=== PATIENT | female | born 1970 | race Caucasian/White ===

== ENCOUNTER 2016-12-19 12:54 | Emergency (ER) | payer MEDICAID ==
[~2016-12-19] VITALS: Ht 152.4 cm; Wt 54.0 kg
[2016-12-19 15:07] VITALS: BP 124/80
== END 2016-12-19 15:07 | disposition home or self-care (01) ==
LOC: ED 12:54
DX: I10 Essential (primary) hypertension (principal); R51 Headache

== ENCOUNTER 2017-03-05 20:39 | Inpatient (IN) | payer MEDICAID ==
[~2017-03-05] VITALS: Ht 162.6 cm; Wt 55.3 kg
[2017-03-05 21:47] LABS: CALCIUM 9.1 mg/dL (8.5-10.1); CARBON DIOXIDE 21.8 mmol/L (21-32); CREATININE SERUM 2.7 mg/dL (0.6-1.0); POTASSIUM SERUM 3.2 mmol/L (3.5-5.1)
[2017-03-05 21:52] LABS: ALBUMIN 3.3 g/dL (3.4-5.0); BILIRUBIN TOTAL 0.28 mg/dL (0.20-1.00); TOTAL PROTEIN, SERUM 7.3 g/dL (6.4-8.2)
[2017-03-05 21:52] LABS: microscopic required? YES; urine erythrocyte 1+ (NEGATIVE)
[2017-03-05 22:14] LABS: BASOPHIL % 0.6 % (0-2); PLATELET COUNT 235 x10^3mcL (130-400)
[2017-03-06] VITALS (7 sets, daily range): BP systolic 119–165; BP diastolic 78–108; Ht 162.6 cm; Wt 55.3 kg
[2017-03-06 02:35] LABS: FREE T4 1.02 ng/dL (0.76-1.46); FREE THYROXINE INDEX 2.6 ug/dL (1.4-4.5); T4(THYROXINE) 7.1 ug/dL (4.7-13.3)
[2017-03-06 02:36] LABS: MAGNESIUM 2.4 mg/dL (1.8-2.4); PHOSPHOROUS 4.1 mg/dL (2.5-4.9)
[2017-03-06 02:56] LABS: T3 TOTAL 0.91 ng/mL
[2017-03-06 06:48] LABS: BASOPHIL % 0.6 % (0-2); PLATELET COUNT 226 x10^3mcL (130-400); RED CELL DISTRIBUTION WIDTH 13.3 % (11.5-14.5)
[2017-03-06 06:57] LABS: CALCIUM 8.9 mg/dL (8.5-10.1); CARBON DIOXIDE 18.2 mmol/L (21-32); CREATININE SERUM 2.7 mg/dL (0.6-1.0); POTASSIUM SERUM 3.3 mmol/L (3.5-5.1)
[2017-03-06 15:50] LABS: IRON 48 ug/dL (50-170); TOTAL IRON BINDING CAPACITY 322 ug/dL (250-450)
[2017-03-06 16:01] LABS: RED BLOOD CELLS 3.78 M/mm3 (4.10-5.10)
[2017-03-06 17:52] LABS: AMPHETAMINE QUAL UR NONE DETECTED (NEG <=1000)
[2017-03-07 06:01] VITALS: BP 125/88
[2017-03-07 06:29] LABS: CALCIUM 8.9 mg/dL (8.5-10.1); CARBON DIOXIDE 19.2 mmol/L (21-32); CREATININE SERUM 2.6 mg/dL (0.6-1.0); MAGNESIUM 2.5 mg/dL (1.8-2.4); PHOSPHOROUS 4.8 mg/dL (2.5-4.9)
[2017-03-07 06:37] LABS: BASOPHIL % 0.5 % (0-2); PLATELET COUNT 213 x10^3mcL (130-400); RED CELL DISTRIBUTION WIDTH 13.6 % (11.5-14.5)
[2017-03-07 08:55] VITALS: BP 128/88
[2017-03-07 13:20] VITALS: BP 124/79
[2017-03-07 17:20] VITALS: BP 116/79
[2017-03-07 21:35] VITALS: BP 125/86
[2017-03-08 05:59] VITALS: BP 132/89
[2017-03-08 07:03] LABS: BASOPHIL % 0.4 % (0-2); PLATELET COUNT 192 x10^3mcL (130-400); RED CELL DISTRIBUTION WIDTH 13.4 % (11.5-14.5)
[2017-03-08 07:10] LABS: CALCIUM 8.7 mg/dL (8.5-10.1); CREATININE SERUM 2.4 mg/dL (0.6-1.0); MAGNESIUM 2.3 mg/dL (1.8-2.4); PHOSPHOROUS 4.7 mg/dL (2.5-4.9)
[2017-03-08 09:44] VITALS: BP 122/83
[2017-03-08] MEDS ORDERED: NOR10 PO (11:24)
[2017-03-08] MEDS ORDERED: ZES10 PO (11:25)
[2017-03-08 12:38] VITALS: BP 122/83
[2017-03-10 11:46] LABS: COMPLEMENT C3 112 mg/dL (82-167); COMPLEMENT C4 31 mg/dL (14-44)
== END 2017-03-08 13:48 | disposition home or self-care (01) | DRG 199 ==
LOC: ED 20:39 → DU 03-06 00:39 → MU 03-07 11:00
PROVIDERS: Emergency Medicine; Family Medicine; Family Medicine Sports Medicine; Internal Medicine; ADMIT Family Medicine
DX: I16.0 Hypertensive urgency (principal); N17.0 Acute kidney failure with tubular necrosis; I42.9 Cardiomyopathy, unspecified; I08.2 Rheumatic disorders of both aortic and tricuspid valves; E83.41 Hypermagnesemia; N39.0 Urinary tract infection, site not specified; I12.9 Hypertensive chronic kidney disease with stage 1 through stage 4 chronic kidney disease, or unspecified chronic kidney disease; N18.9 Chronic kidney disease, unspecified; D64.9 Anemia, unspecified; Z91.14 Patient's other noncompliance with medication regimen; Z68.21 Body mass index [BMI] 21.0-21.9, adult
CPT/HCPCS: 84439; J0360; J0696; J2060; J7030; Q0092

== ENCOUNTER 2017-10-20 17:40 | Emergency (ER) | payer MEDICAID ==
[~2017-10-20] VITALS: Ht 157.5 cm; Wt 56.2 kg
[~2017-10-20 17:40] MED LIST: NOR10 PO; ZES10 PO
[2017-10-20 17:47] VITALS: Ht 157.5 cm; Wt 56.2 kg
[2017-10-20 20:13] VITALS: BP 128/84
== END 2017-10-20 20:13 | disposition home or self-care (01) ==
LOC: ED 17:40
DX: R05 Cough (principal); I10 Essential (primary) hypertension; D64.9 Anemia, unspecified

== ENCOUNTER 2018-04-07 18:08 | Emergency (ER) | payer MEDICAID ==
[~2018-04-07] VITALS: Ht 152.4 cm; Wt 54.5 kg
[2018-04-07 19:05] LABS: BASOPHIL % 0.5 % (0-2); PLATELET COUNT 218 x10^3mcL (130-400); RED CELL DISTRIBUTION WIDTH 13.1 % (11.5-14.5)
[2018-04-07 19:23] LABS: CARBON DIOXIDE 22.4 mmol/L (21-32); CREATININE SERUM 3.1 mg/dL (0.6-1.0); POTASSIUM SERUM 4.8 mmol/L (3.5-5.1)
[2018-04-07 19:24] LABS: BILIRUBIN TOTAL 0.1 mg/dL (0.20-1.00); TOTAL PROTEIN, SERUM 7.1 g/dL (6.4-8.2)
[2018-04-07 19:25] LABS: ALBUMIN 3.2 g/dL (3.4-5.0)
[2018-04-07 20:21] VITALS: BP 131/73
== END 2018-04-07 20:21 | disposition home or self-care (01) ==
LOC: ED 18:08
PROVIDERS: Emergency Medicine
DX: R51 Headache (principal); R11.2 Nausea with vomiting, unspecified
CPT/HCPCS: 36415; Q0162

== ENCOUNTER 2018-04-19 21:19 | Emergency (ER) | payer MEDICAID ==
[2018-04-19 22:29] LABS: microscopic required? YES; urine erythrocyte 2+ (NEGATIVE)
[2018-04-19 22:40] VITALS: BP 128/85
== END 2018-04-19 22:40 | disposition home or self-care (01) ==
LOC: ED 21:19
PROVIDERS: Emergency Medicine
DX: N39.0 Urinary tract infection, site not specified (principal); R51 Headache; I10 Essential (primary) hypertension; Z86.2 Personal history of diseases of the blood and blood-forming organs and certain disorders involving the immune mechanism
CPT/HCPCS: J1200; J1885; J2765; J7030

== ENCOUNTER 2018-04-21 00:29 | Inpatient (IN) | payer MEDICAID ==
[~2018-04-21] VITALS: Ht 154.9 cm; Wt 59.0 kg
[2018-04-21] VITALS (7 sets, daily range): BP systolic 84–123; BP diastolic 46–79; Ht 154.9 cm; Wt 59.0 kg
[2018-04-21 02:02] LABS: BASOPHIL % 0.1 % (0-2); PLATELET COUNT 141 x10^3mcL (130-400); RED CELL DISTRIBUTION WIDTH 12.7 % (11.5-14.5)
[2018-04-21 02:19] LABS: CALCIUM 8.4 mg/dL (8.5-10.1); CARBON DIOXIDE 17.1 mmol/L (21-32); POTASSIUM SERUM 4.1 mmol/L (3.5-5.1)
[2018-04-21 02:32] LABS: BILIRUBIN TOTAL 0.42 mg/dL (0.20-1.00); TOTAL PROTEIN, SERUM 6.4 g/dL (6.4-8.2)
[2018-04-21 02:37] LABS: ALBUMIN 2.6 g/dL (3.4-5.0)
[2018-04-21 02:38] LABS: CREATININE SERUM 4.7 mg/dL (0.6-1.0)
[2018-04-21 03:09] LABS: microscopic required? YES; urine erythrocyte 2+ (NEGATIVE)
[2018-04-21 05:09] LABS: CHOLESTEROL/HDL RATIO 5.2; MAGNESIUM 1.9 mg/dL (1.8-2.4); PHOSPHOROUS 2.5 mg/dL (2.5-4.9)
[2018-04-21 09:27] LABS: IRON 17 ug/dL (50-170); TOTAL IRON BINDING CAPACITY 225 ug/dL (250-450)
[2018-04-22 05:45] VITALS: BP 115/71
[2018-04-22 06:36] LABS: BASOPHIL % 0.3 % (0-2); PLATELET COUNT 176 x10^3mcL (130-400); RED CELL DISTRIBUTION WIDTH 13.7 % (11.5-14.5)
[2018-04-22 07:07] LABS: CALCIUM 8.5 mg/dL (8.5-10.1); CARBON DIOXIDE 16.3 mmol/L (21-32); CREATININE SERUM 3.8 mg/dL (0.6-1.0); MAGNESIUM 2.1 mg/dL (1.8-2.4); POTASSIUM SERUM 5.4 mmol/L (3.5-5.1)
[2018-04-22 08:23] VITALS: BP 134/89
[2018-04-22 11:19] LABS: BILIRUBIN DIRECT 0.11 mg/dL (0.0-0.2); BILIRUBIN TOTAL 0.16 mg/dL (0.20-1.00)
[2018-04-22 11:31] LABS: ALBUMIN 2.1 g/dL (3.4-5.0); TOTAL PROTEIN, SERUM 5.7 g/dL (6.4-8.2)
[2018-04-22 12:46] VITALS: BP 108/75
[2018-04-22 17:15] VITALS: BP 126/85
[2018-04-22 20:49] VITALS: BP 129/86
[2018-04-23 05:43] VITALS: BP 143/91
[2018-04-23 07:02] LABS: BASOPHIL % 0.5 % (0-2); PLATELET COUNT 187 x10^3mcL (130-400); RED CELL DISTRIBUTION WIDTH 13.8 % (11.5-14.5)
[2018-04-23 07:05] LABS: CALCIUM 8.3 mg/dL (8.5-10.1); CARBON DIOXIDE 17.1 mmol/L (21-32); CREATININE SERUM 3.5 mg/dL (0.6-1.0); MAGNESIUM 1.9 mg/dL (1.8-2.4); PHOSPHOROUS 3.8 mg/dL (2.5-4.9); POTASSIUM SERUM 4.5 mmol/L (3.5-5.1)
[2018-04-23 08:18] VITALS: BP 158/82
[2018-04-23 08:50] LABS: BILIRUBIN DIRECT 0.07 mg/dL (0.0-0.2); BILIRUBIN TOTAL 0.13 mg/dL (0.20-1.00)
[2018-04-23 08:52] LABS: ALBUMIN 2.1 g/dL (3.4-5.0); TOTAL PROTEIN, SERUM 5.5 g/dL (6.4-8.2)
[2018-04-23 12:59] VITALS: BP 153/88
[2018-04-23 15:29] VITALS: BP 153/88
[2018-04-23 17:12] VITALS: BP 167/93
[2018-04-23 20:38] VITALS: BP 152/69
[2018-04-24 05:36] VITALS: BP 146/92
[2018-04-24 06:11] LABS: BASOPHIL % 0.5 % (0-2); PLATELET COUNT 201 x10^3mcL (130-400); RED CELL DISTRIBUTION WIDTH 13.1 % (11.5-14.5)
[2018-04-24 07:04] LABS: BILIRUBIN DIRECT 0.07 mg/dL (0.0-0.2); BILIRUBIN TOTAL 0.15 mg/dL (0.20-1.00); CALCIUM 8.5 mg/dL (8.5-10.1); CREATININE SERUM 3.1 mg/dL (0.6-1.0); MAGNESIUM 1.8 mg/dL (1.8-2.4); PHOSPHOROUS 3.9 mg/dL (2.5-4.9); POTASSIUM SERUM 4.4 mmol/L (3.5-5.1)
[2018-04-24 07:05] LABS: ALBUMIN 2.1 g/dL (3.4-5.0); TOTAL PROTEIN, SERUM 5.6 g/dL (6.4-8.2)
[2018-04-24 08:26] VITALS: BP 157/90
[2018-04-24 09:52] VITALS: BP 138/85
[2018-04-24] MEDS ORDERED: BACTRIM1 TAB PO (12:04)
[2018-04-24] MEDS ORDERED: ACYCLOVIR400 MG PO (12:06)
[2018-04-24] MEDS ORDERED: BD LACTINEX1.4 MG PO (12:06)
== END 2018-04-24 14:09 | disposition home or self-care (01) | DRG 463 ==
LOC: ED 00:29 → DU 03:06
PROVIDERS: Emergency Medicine; General Practice; Internal Medicine
DX: N39.0 Urinary tract infection, site not specified (principal); N17.0 Acute kidney failure with tubular necrosis; E43 Unspecified severe protein-calorie malnutrition; B00.1 Herpesviral vesicular dermatitis; I10 Essential (primary) hypertension; E83.51 Hypocalcemia; E87.5 Hyperkalemia; R74.0 Nonspecific elevation of levels of transaminase and lactic acid dehydrogenase [LDH]; D50.9 Iron deficiency anemia, unspecified; B96.20 Unspecified Escherichia coli [E. coli] as the cause of diseases classified elsewhere; Z68.23 Body mass index [BMI] 23.0-23.9, adult
CPT/HCPCS: J0696; J2270; J2405; J2916; J7030; Q0092

== ENCOUNTER 2019-06-18 17:00 | Emergency (ER) | payer MEDICAID ==
[~2019-06-18] VITALS: Ht 152.4 cm; Wt 50.8 kg
[~2019-06-18 17:00] MED LIST changes: +ACYCLOVIR400 MG PO; +BACTRIM1 TAB PO; +BD LACTINEX1.4 MG PO
[2019-06-18 17:09] VITALS: Ht 152.4 cm; Wt 50.8 kg
[2019-06-18 17:39] VITALS: BP 143/78
== END 2019-06-18 17:39 | disposition home or self-care (01) ==
LOC: ED 17:00
DX: L03.012 Cellulitis of left finger (principal); I10 Essential (primary) hypertension

== ENCOUNTER 2019-09-23 22:01 | Inpatient (IN) | payer MEDICAID ==
[~2019-09-23] VITALS: Ht 152.4 cm; Wt 53.5 kg
[2019-09-23 22:08] VITALS: Ht 152.4 cm; Wt 53.5 kg
[2019-09-23 23:17] LABS: BASOPHIL % 0.7 % (0-2); PLATELET COUNT 156 x10^3mcL (130-400); RED CELL DISTRIBUTION WIDTH 13.1 % (11.5-14.5)
[2019-09-23 23:56] LABS: CALCIUM 8.1 mg/dL (8.5-10.1); CARBON DIOXIDE 22.3 mmol/L (21-32); POTASSIUM SERUM 5.5 mmol/L (3.5-5.1)
[2019-09-23 23:58] LABS: CREATININE SERUM 6.5 mg/dL (0.6-1.0)
[2019-09-24 03:36] LABS: UA SPECIFIC GRAVITY 1.015 (1.005-1.035); microscopic required? YES; urine erythrocyte TRACE (NEGATIVE)
[2019-09-24 03:50] LABS: AMPHETAMINE QUAL UR NONE DETECTED (See below)
[2019-09-24 04:52] LABS: BASOPHIL % 0.3 % (0-2); PLATELET COUNT 143 x10^3mcL (130-400)
[2019-09-24 05:13] LABS: CALCIUM 7.9 mg/dL (8.5-10.1); CARBON DIOXIDE 18.3 mmol/L (21-32); MAGNESIUM 2.4 mg/dL (1.8-2.4); PHOSPHOROUS 5.7 mg/dL (2.5-4.9)
[2019-09-24 05:15] VITALS: BP 135/88
[2019-09-24 05:17] LABS: POTASSIUM SERUM 6.5 mmol/L (3.5-5.1)
[2019-09-24 08:41] VITALS: BP 139/86
[2019-09-24 12:24] VITALS: BP 148/89
[2019-09-24 16:24] VITALS: BP 143/75
[2019-09-24 16:36] LABS: CALCIUM 8.6 mg/dL (8.5-10.1); CARBON DIOXIDE 20.2 mmol/L (21-32)
[2019-09-24 16:55] LABS: POTASSIUM SERUM 6.1 mmol/L (3.5-5.1)
[2019-09-24 19:18] VITALS: BP 141/84
[2019-09-25 04:36] VITALS: BP 142/84
[2019-09-25 07:26] LABS: IRON 36 ug/dL (50-170)
[2019-09-25 07:31] LABS: BASOPHIL % 0.3 % (0-2); PLATELET COUNT 136 x10^3mcL (130-400); RED CELL DISTRIBUTION WIDTH 13.2 % (11.5-14.5)
[2019-09-25 07:32] LABS: CARBON DIOXIDE 19.4 mmol/L (21-32); MAGNESIUM 2.3 mg/dL (1.8-2.4); PHOSPHOROUS 6.4 mg/dL (2.5-4.9); POTASSIUM SERUM 5.3 mmol/L (3.5-5.1)
[2019-09-25 07:33] LABS: CREATININE SERUM 6.2 mg/dL (0.6-1.0)
[2019-09-25 07:34] LABS: TOTAL IRON BINDING CAPACITY 233 ug/dL (250-450)
[2019-09-25 07:54] VITALS: BP 148/78
[2019-09-25 11:40] VITALS: BP 156/88
[2019-09-25 16:51] VITALS: BP 148/79
[2019-09-25 19:39] VITALS: BP 139/80
[2019-09-26 05:45] VITALS: BP 144/86
[2019-09-26 06:11] LABS: BASOPHIL % 0.4 % (0-2); RED CELL DISTRIBUTION WIDTH 12.9 % (11.5-14.5)
[2019-09-26 06:12] LABS: PLATELET COUNT 129 x10^3mcL (130-400)
[2019-09-26 06:24] LABS: CALCIUM 8.5 mg/dL (8.5-10.1); MAGNESIUM 1.8 mg/dL (1.8-2.4); PHOSPHOROUS 5.4 mg/dL (2.5-4.9); POTASSIUM SERUM 3.7 mmol/L (3.5-5.1)
[2019-09-26 06:25] LABS: CREATININE SERUM 4.2 mg/dL (0.6-1.0)
[2019-09-26 07:49] VITALS: BP 142/86
[2019-09-26 12:37] VITALS: BP 116/83
[2019-09-26 16:28] VITALS: BP 119/73
[2019-09-26 20:30] VITALS: BP 127/77
[2019-09-27 05:31] VITALS: BP 139/78
[2019-09-27 06:33] LABS: BASOPHIL % 0.4 % (0-2); PLATELET COUNT 136 x10^3mcL (130-400); RED CELL DISTRIBUTION WIDTH 12.8 % (11.5-14.5)
[2019-09-27 06:47] LABS: CARBON DIOXIDE 29.5 mmol/L (21-32); MAGNESIUM 1.7 mg/dL (1.8-2.4); PHOSPHOROUS 5.4 mg/dL (2.5-4.9); POTASSIUM SERUM 3.6 mmol/L (3.5-5.1)
[2019-09-27 07:06] LABS: CREATININE SERUM 4.6 mg/dL (0.6-1.0)
[2019-09-27 07:52] VITALS: BP 130/87
[2019-09-27 11:51] VITALS: BP 149/93
[2019-09-27 16:33] VITALS: BP 148/97
[2019-09-27 21:35] VITALS: BP 130/91
[2019-09-28] VITALS (7 sets, daily range): BP systolic 135–155; BP diastolic 84–96
[2019-09-28 06:49] LABS: BASOPHIL % 0.4 % (0-2); RED CELL DISTRIBUTION WIDTH 12.8 % (11.5-14.5)
[2019-09-28 07:07] LABS: PLATELET COUNT 121 x10^3mcL (130-400)
[2019-09-28 07:10] LABS: CARBON DIOXIDE 24.4 mmol/L (21-32); POTASSIUM SERUM 3.7 mmol/L (3.5-5.1)
[2019-09-28 07:15] LABS: CREATININE SERUM 5.8 mg/dL (0.6-1.0)
[2019-09-28] MEDS ORDERED: NOR5 PO (17:19)
[2019-09-28] MEDS ORDERED: SUMATRIPTAN SUC50 M1 PO (17:20)
== END 2019-09-28 20:41 | disposition home or self-care (01) | DRG 469 ==
LOC: ED 22:01 → DU 09-24 03:58 → MU 09-28 17:15
PROVIDERS: Emergency Medicine; Internal Medicine; ADMIT Family Medicine
PROC: 0JH63XZ Insertion of Tunneled Vascular Access Device into Chest Subcutaneous Tissue and Fascia, Percutaneous Approach (ICD-10-PCS; principal; 2019-09-24)
PROC: 02H633Z Insertion of Infusion Device into Right Atrium, Percutaneous Approach (ICD-10-PCS; 2019-09-24)
PROC: B5181ZA Fluoroscopy of Superior Vena Cava using Low Osmolar Contrast, Guidance (ICD-10-PCS; 2019-09-24)
PROC: 5A1D70Z Performance of Urinary Filtration, Intermittent, Less than 6 Hours Per Day (ICD-10-PCS; 2019-09-25)
PROC: 5A1D70Z Performance of Urinary Filtration, Intermittent, Less than 6 Hours Per Day (ICD-10-PCS; 2019-09-26)
PROC: 5A1D70Z Performance of Urinary Filtration, Intermittent, Less than 6 Hours Per Day (ICD-10-PCS; 2019-09-28)
DX: N17.9 Acute kidney failure, unspecified (principal); E87.5 Hyperkalemia; I12.0 Hypertensive chronic kidney disease with stage 5 chronic kidney disease or end stage renal disease; G43.909 Migraine, unspecified, not intractable, without status migrainosus; N18.6 End stage renal disease; E86.0 Dehydration; N39.0 Urinary tract infection, site not specified; G44.209 Tension-type headache, unspecified, not intractable; Z79.899 Other long term (current) drug therapy; Z79.4 Long term (current) use of insulin
CPT/HCPCS: 82962; 83880; 86480; G0378; J0690; J0696; J1642; J1644; J2001; J2060; J2250; J2270; J2405; J2916; J3010; J3490; J7030; J7060; P9016; Q0092; U0003-CS

== ENCOUNTER 2019-10-18 07:17 | Emergency (ER) | payer MEDICAID ==
[~2019-10-18] VITALS: Ht 152.4 cm; Wt 52.2 kg
[~2019-10-18 07:17] MED LIST changes: +NOR5 PO; +SUMATRIPTAN SUC50 M1 PO
[2019-10-18 07:32] VITALS: Ht 152.4 cm; Wt 52.2 kg
[2019-10-18 09:05] LABS: BASOPHIL % 0.7 % (0-2); PLATELET COUNT 224 x10^3mcL (130-400); RED CELL DISTRIBUTION WIDTH 14.6 % (11.5-14.5)
[2019-10-18 09:14] LABS: BILIRUBIN TOTAL 0.3 mg/dL (0.20-1.00); CALCIUM 8.6 mg/dL (8.5-10.1); CARBON DIOXIDE 20.1 mmol/L (21-32); TOTAL PROTEIN, SERUM 6.7 g/dL (6.4-8.2)
[2019-10-18 09:19] LABS: ALBUMIN 3.3 g/dL (3.4-5.0); CREATININE SERUM 6.9 mg/dL (0.6-1.0); POTASSIUM SERUM 5.6 mmol/L (3.5-5.1)
[2019-10-18 10:25] VITALS: BP 1158/97
== END 2019-10-18 10:25 | disposition home or self-care (01) ==
LOC: ED 07:17
PROVIDERS: Student in an Organized Health Care Education/Training Program
DX: R07.89 Other chest pain (principal); S11.91XD Laceration without foreign body of unspecified part of neck, subsequent encounter; E87.5 Hyperkalemia; I12.0 Hypertensive chronic kidney disease with stage 5 chronic kidney disease or end stage renal disease; N18.6 End stage renal disease; Z99.2 Dependence on renal dialysis; X58.XXXD Exposure to other specified factors, subsequent encounter; Z86.2 Personal history of diseases of the blood and blood-forming organs and certain disorders involving the immune mechanism
CPT/HCPCS: 36415; Q0092

== ENCOUNTER 2020-02-03 19:42 | Emergency (ER) | payer MEDICAID, SELFPAY ==
[~2020-02-03] VITALS: Ht 152.4 cm; Wt 50.8 kg
[2020-02-03 19:47] VITALS: BP 157/85; Ht 152.4 cm; Wt 50.8 kg
== END 2020-02-03 21:29 | disposition left against medical advice (07) ==
LOC: ED 19:42
DX: Z53.21 Procedure and treatment not carried out due to patient leaving prior to being seen by health care provider (principal)